=== PATIENT | female | born 1985 | race Caucasian/White ===

== ENCOUNTER 2018-01-14 21:06 | Emergency (ER) | payer OTHER ==
[~2018-01-14] VITALS: Ht 162.6 cm; Wt 116.5 kg
[2018-01-14 21:11] VITALS: BP 155/92; PULSE 85; TEMP 36.8; O2SAT 100; Ht 162.6 cm; Wt 116.5 kg
--- NOTE | 2018-01-14 21:33 | EMERGENCY ROOM VISIT NOTE ---
History Report prepared by Catarino: Stu Iyer Under the Supervision of: Dr. Db Jordan M.D. 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 The patient reported "sharp" pain when the bug bit her. Se did not see any bug present when she checked the leg. She denies shortness of breath, but notes that there is redness around the bite. Source of History: patient Onset: 1 hour POWER CHECKER Position: leg (left) Quality: sharp Timing: other (patient bit an hour ago) Associated Symptoms: No SOB Review of Systems See HPI for pertinent positives and negatives. A total of ten systems were reviewed and were otherwise negative. Past Medical & Surgical Hx of migraines. Family History Diabetes mellitus Heart disease Social History Smoking Status: Never Smoker Marital Status: single Housing Status: lives alone Occupation Status: employed Allergies Coded Allergies: No Known Allergies (Unverified , 01/14/18) Physical Exam Vital Signs Date Time Temp Pulse Resp B/P (MAP) Pulse Ox O2 Delivery O2 Flow Rate FiO2 01/14/18 21:11 36.8 85 18 155/92 100 Room Air Physical Exam Physical Exam GENERAL: He is oriented to person, place, and time. He appears well-developed and well-nourished. He does not appear distressed. HENT: Exam performed. Head: Normocephalic and atraumatic. Right Ear: External ear normal. No mastoid tenderness. Left Ear: External ear normal. No mastoid tenderness. Mouth/Throat: The oropharynx is clear and moist. No trismus in the jaw. No dental abscesses or uvula swelling. No oropharyngeal exudate or tonsillar abscesses. EYES: Conjunctivae and EOM are normal. Pupils are equal, round, and reactive to light. Right eye exhibits no discharge. Left eye exhibits no discharge. No scleral icterus. NECK: Normal range of motion. Neck supple. No JVD present. No spinous process tenderness present. No carotid bruit present. No rigidity. No tracheal deviation and normal range of motion present. No Brudzinski's sign and no Kernig 's sign noted. CV: Normal rate, regular rhythm, normal heart sounds and intact distal pulses. There is no peripheral edema. Palpable radial pulses bue. PULM/CHEST: Effort normal and breath sounds normal. No respiratory distress. No stridor. He has no wheezes. He has no rales. Chest Wall: He exhibits no tenderness. ABD: The abdomen is soft. Bowel sounds are normal. He has no distension. No mass is present. There is no tenderness. There is no rebound, no guarding, no Cottrell's sign and no tenderness at McBurney's point. Rovsig negative. MUSC/SKEL: Normal range of motion. There is no peripheral edema, tenderness or deformity. LYMPH: No cervical adenopathy. NEURO: He is alert and oriented to person, place, and time. He has normal strength. No cranial nerve deficit or sensory deficit. Coordination and gait normal. GCS eye subscore is 4. GCS verbal subscore is 5. GCS motor subscore is 6. Cerebellar tests wnl. SKIN: There is a small insect bite with minimal surrounding erythema to the left lateral thigh. NO target lesion, no vesicles, no fluctuation, no discharge , Nikolsky negative. PSYCH: He has a normal mood and affect. Behavior is normal. Judgment and thought content normal. Medical Decision & Procedures ED Course 2115: The patient was evaluated in room B5. A complete history and physical exam was performed. The patient drove herself to the emergency department. On exam there is no evidence of any acute dermatological emergency. There are no signs of anaphylactic reaction. No respiratory distress. Patient was advised to take Benadryl when she gets home. No Benadryl was given in the emergency department as she has to drive home herself. Follow-up with PCP. DISCHARGE - Plan of care discussed with patient and questions answered. The patient was given both verbal and printed discharge instructions. The patient verbalized understanding and ability to comply. The patient is to seek outpatient follow up as noted in the discharge instructions. The patient verbalized understanding and ability to comply. The patient is discharged in stable condition. The patient was instructed to return for worsening symptoms. Medical Decision The patient was evaluated in room B5. A complete history and physical exam was performed. The patient drove herself to the emergency department. On exam there is no evidence of any acute dermatological emergency. There are no signs of anaphylactic reaction. No respiratory distress. Patient was advised to take Benadryl when she gets home. No Benadryl was given in the emergency department as she has to drive home herself. Follow-up with PCP. DISCHARGE - Plan of care discussed with patient and questions answered. The patient was given both verbal and printed discharge instructions. The patient verbalized understanding and ability to comply. The patient is to seek outpatient follow up as noted in the discharge instructions. The patient verbalized understanding and ability to comply. The patient is discharged in stable condition. The patient was instructed to return for worsening symptoms. Medication Reconcilliation Current Medication List: was personally reviewed by me Blood Pressure Screening Patient's blood pressure: Elevated blood pressure Blood pressure disposition: Elevated BP felt to be situational Impression Primary Impression: Insect bites Scribe Attestation The scribe's documentation has been prepared under my direction and personally reviewed by me in its entirety. I confirm that the note above accurately reflects all work, treatment, procedures, and medical decision making performed by me. The chart was completed utilizing [employer] Speech voice recognition software. Grammatical errors, random word insertions, pronoun errors, and incomplete sentences are an occasional consequence of this system due to software limitations, ambient noise, and hardware issues. Any formal questions or concerns about the content, text, or information contained within the body of this dictation should be directly addressed to the physician for clarification. Departure Information Dispostion Home / Self-Care Referrals Stephan Manuel M.D. (PCP) Patient Instructions My [facility] Problem Qualifiers Primary Impression: Insect bites Encounter type: initial encounter Qualified Codes: W57.XXXA - Bitten or stung by nonvenomous insect and other nonvenomous arthropods, initial encounter
== END 2018-01-14 21:36 | disposition home or self-care (01) ==
LOC: C.EDB 21:07
DX: S70.362A Insect bite (nonvenomous), left thigh, initial encounter (principal); W57.XXXA Bitten or stung by nonvenomous insect and other nonvenomous arthropods, initial encounter; Z83.3 Family history of diabetes mellitus

== ENCOUNTER 2024-04-10 13:22 | Inpatient (IN) ==
[2024-04-10 14:52] LABS: Creatinine Urine Random 79.3 mg/dl; Protein Creatinine Ratio Urine 0.3 (0-0.2)
[2024-04-10 15:07] LABS: Hemoglobin 11.1 g/dl (12.0-16.0); Mean Corpuscular Hemoglobin 26.2 pg (25.0-34.0); Mean Corpuscular Hgb Conc 31.7 g/dL (32.0-36.0); Mean Corpuscular Volume 82.7 fL (80.0-100.0); Mean Platelet Volume 10.1 fL (9.4-12.4); Platelet Count 359 K/uL (130-400); RDW Standard Deviation 44.5 fL (36.4-46.3); Red Blood Count 4.23 M/uL (4.20-5.40); White Blood Count 12.87 K/ul (4.8-10.8)
[2024-04-10 15:25] LABS: Albumin Globulin Ratio 0.9 (0.9-2); Albumin Level 3.2 gm/dl (3.4-5.0); BUN Creatinine Ratio 25.5 (10-20); Bilirubin,Total 0.2 mg/dl (0.2-1.0); Calcium 8.9 mg/dl (8.6-10.3); Creatinine Clr Calc Pharmacy 182.9 ml/min; Globulin 3.5 gm/dl (2.5-4.0); Total Protein 6.7 gm/dl (6.0-8.3)
[2024-04-10] MEDS ORDERED: LIDOCAINE 1% LOCAL 20 ML VIAL INFIL PRN (15:56)
[2024-04-10] MEDS ORDERED: CALCIUM CARBONATE 500 MG CHEWABLE TAB PO PRN (15:56)
--- NOTE | 2024-04-10 17:05 | Labor Progress Brief Note ---
Date of Service April 10, 2024 Subjective 38yo at 37w0d with blood pressure elevation two days ago, and again today, along with a sensation of her "head feeling weird, like I didn't get enough sleep," though denies any MOSER per se, no vision changes, and edema similar to the last few weeks of trace pedal swelling that is better in the morning and worse in the evening. Came to L&D and was found to have consistent hypertension but not consistently severe BPs; urine pr/cr ratio 0.3, and serum labs reassuring. Diagnosis of mild preeclampsia met, and given 37wk, indication for delivery. also c/b morbid obesity and A2GDM. Incomplete anatomy scan noted despite multiple attempts at [facility]; monthly growth scans done d/t incomplete survey, and recent measurements include EFW 86% and AC 94%. GBS is neg. Assessment & Plan (1) Mild preeclampsia: Plan: IOL: patient and FOB agreeable. Du balloon placed without difficulty. Will start pitocin once balloon falls out / 3cm minimum reached. A2GDM: will give diabetic-friendly meal this evening given likely length of induction, and will thereafter start the insulin intrapartum management protocol. GBS: Neg. BP: Not severe and patient asymptomatic; will consider antihypertensive and/or magnesium PRN course of care. Admission and Anticipated Discharge Date Admission Date: April 10, 2024 Physical Exam Genitourinary: 2/50/-2/soft/ant Du balloon placed cervically in the usual manner, insufflated with 30cc sterile water. FHT Cat 1 [place] quiet. Results & Data Vital Signs (Past 12 Hours) Vital Signs Temp Pulse Resp BP 04/10/24 16:33 78 04/10/24 16:33 151/87 H 04/10/24 15:28 72 04/10/24 15:28 142/76 H 04/10/24 15:13 81 04/10/24 15:13 149/82 H 04/10/24 14:58 81 04/10/24 14:58 156/86 H 04/10/24 14:43 76 04/10/24 14:43 161/93 H 04/10/24 14:05 82 04/10/24 14:05 144/95 H 04/10/24 13:50 98.2 F 20 04/10/24 13:28 98.2 F 78 20 158/90 H 04/10/24 13:25 80 172/93 H Coding Level of Care Code None Diagnoses Mild preeclampsia O14.00
[2024-04-10] MEDS ORDERED: DEXTROSE 50% 50 ML SYRINGE IV PRN (17:06)
[2024-04-10] MEDS ORDERED: SODIUM CHLORIDE 0.9% 1,000 ML IV PRN (17:06)
[2024-04-10] MEDS: NIFEdipine 10 MG CAP PO STA (17:23)
[2024-04-10] MEDS: NIFEdipine 10 MG CAP ONE (17:24)
[2024-04-10] MEDS: ACETAMINOPHEN 325 MG TAB PO PRN (20:44)
[2024-04-10] MEDS: AZELASTINE HCL 0.1% SCH (20:44)
[2024-04-10] MEDS: LACTATED RINGER'S 1,000 ML IV PRN (20:56)
[2024-04-10] MEDS: DEXTROSE 5% 1,000 ML IV PRN (20:57)
[2024-04-10] MEDS ORDERED: AZELASTINE HCL 0.1% NASAL 200 SPRAYS/27,400 MCG BTL SCH (21:00)
[2024-04-10] MEDS: INSULIN REGULAR 250 UNITS in SODIUM CHLORIDE 0.9% 247.5 ML IV PRN (21:00)
[2024-04-10] MEDS: OXYTOCIN 30 UNITS/NSS 30 UNITS/500 ML BAG IV PRN (21:01)
[2024-04-10] MEDS: LORATADINE 10 MG TAB PO SCH (23:07)
[2024-04-11] MEDS ORDERED: ROPIVACAINE 0.5% PF 5 MG/ML 20 ML VIAL EPI PRN (02:23)
[2024-04-11] MEDS ORDERED: fentaNYL citrate PF 100 MCG/2 ML VIAL EPI PRN (02:23)
[2024-04-11] MEDS ORDERED: diphenhydrAMINE 50 MG/ML VIAL IV PRN (02:23)
[2024-04-11] MEDS ORDERED: LIDOCAINE 2% MPF LOCAL 5 ML VIAL EPI PRN (02:23)
[2024-04-11] MEDS ORDERED: NALOXONE HCL 0.4 MG/1 ML VIAL/CARP IV PRN (02:23)
[2024-04-11] MEDS ORDERED: ePHEDrine sulfate 50 MG/ML AMP IV PRN (02:23)
[2024-04-11] MEDS ORDERED: NALBUPHINE HCL INJ 10 MG/ML AMP IV PRN (02:23)
[2024-04-11] MEDS ORDERED: SODIUM CHLORIDE 0.9% PF INJ 10 ML VIAL EPI PRN (02:23)
[2024-04-11] MEDS ORDERED: BUPIVACAINE 0.25% PF 30 ML VIAL EPI PRN (02:23)
[2024-04-11] MEDS ORDERED: NALOXONE HCL 1 MG in SODIUM CHLORIDE 0.9% 1,000 ML IV PRN (02:23)
--- NOTE | 2024-04-11 02:23 | Anesthesiology Consultation ---
Date of Service April 11, 2024 Assessment & Plan ASA ASA3 Proposed Anesthesia Anesthesia Type: Labor Epidural Risk / Benefits Reviewed With: PT / POA / Parent / Guardian, Accepts Plan and Informed Consent Obtained History Height/Weight Height: 5 ft 4 in Weight: 124.738 kg Allergies Allergy/AdvReac Type Severity Reaction Status Date / Time No Known Allergies Allergy Verified 04/05/24 09:09 Medications Home Medications Medication Instructions Recorded Confirmed Last Taken azelastine 2 spray intranasal BID 02/05/23 04/10/24 04/10/24 08:30 PNV [id number] 1 tab PO DAILY 09/14/23 04/10/24 04/09/24 22:00 [ Gummies] loratadine [Claritin] 1 tab PO DAILY 09/14/23 04/10/24 04/09/24 23:00 montelukast [Singulair] 1 tab PO DAILY 09/14/23 04/10/24 04/10/24 08:30 acetone (urine) test (Ketone Urine #50 ea 12/14/23 04/05/24 Unknown Test strips) blood sugar diagnostic (OneTouch #150 ea 12/14/23 04/05/24 Unknown Verio test strips) blood-glucose meter (OneTouch #1 ea 12/14/23 04/05/24 Unknown Verio Reflect Meter) lancets 33 gauge (OneTouch Delica #150 ea 12/14/23 04/05/24 Unknown Plus Lancet) pen needle, diabetic 32 gauge x #100 ea 01/01/24 04/05/24 Unknown 5/32" (BD Ultra-Fine Ebony Pen Needle) breast pump #1 ea 02/12/24 04/05/24 Unknown ferrous sulfate 1 tab PO .QOD 02/23/24 04/10/24 04/09/24 15:00 docusate sodium 50 mg capsule 150 mg PO HS 04/10/24 04/10/24 04/09/24 22:30 insulin NPH isoph U-100 human 100 55 unit subcut QPM 04/10/24 04/10/24 04/09/24 22:30 unit/mL (3 mL) subcutaneous pen (Novolin N FlexPen) magnesium 250 mg tablet 250 mg PO BID 04/10/24 04/10/24 04/09/24 09:30 Active Medications Generic Name Dose Route Start Last Admin Trade Name Freq PRN Reason Stop Dose Admin Acetaminophen 650 mg 04/10/24 15:56 04/10/24 20:44 Acetaminophen 325 Mg Tab PO 05/10/24 15:55 650 mg Q6H PRN Administration Pain Azelastine HCl 2 sprays 04/10/24 21:00 04/10/24 20:44 *Patient Own Med*Azelastine Hcl 0.1% Nasal Cades NA 05/10/24 20:59 2 sprays BID NEW Administration Lactated Ringer's 1,000 mls @ 125 mls/hr 04/10/24 15:56 04/11/24 02:20 Lr IV 04/12/24 15:55 999 mls/hr .Q8H PRN Titration L&D Protocol Protocol Oxytocin 30 units in 500 mls @ 8 mls/hr 04/10/24 17:06 04/11/24 00:00 Pitocin 30 Units/Nss IV 04/12/24 17:05 0.48 units/hr .Q24H PRN 8 mls/hr Labor Induction/Augmentation Titration Protocol 0.48 UNITS/HR Dextrose 1,000 mls @ 100 mls/hr 04/10/24 17:06 04/11/24 02:00 D5w IV 05/10/24 17:05 75 mls/hr .Q10H PRN Infusion BSG 180 or below Protocol Insulin Human Regular 250 250 mls @ 1.5 mls/hr 04/10/24 17:06 04/11/24 02:00 units/ Sodium Chloride IV 05/10/24 17:05 1 units/hr .Q24H PRN 1 mls/hr BSG 80mg/dL or ABOVE Titration Protocol Per Protocol Loratadine 10 mg 04/10/24 21:00 04/10/24 23:07 Loratadine 10 Mg Tab PO 05/10/24 20:59 10 mg HS NEW Administration Past Medical History Medical History Seasonal allergies History of chicken pox Exercise / Class Metabolic Activity II 4-5 Yardwork/Stairs/Walk up hill Past Family History Family History Mother Breast cancer, Onset Age: 66 Father Allergic rhinitis Hypertension Grandmother (Maternal) Heart disease Grandfather (Maternal) Heart disease Grandfather (Paternal) Heart disease Denies family history of Ovarian cancer Colorectal cancer Past Surgical History Surgical History No history of previous surgery Past Anesthesia History No Hx of Anesthesia Complications and No Family Hx of Anesthesia Complications History of PONV No Hx of PONV and No Hx of Motion Sickness Social History Smoking Status: Never smoker Do You Dip or Chew Tobacco: No Hx Alcohol Use: No Hx Substance Use: No Review of Systems denies fever/cough/ colds/ chest pain/ SOB/ INGRID denies INGRID Physical Exam Vital Signs Last Vital Signs Temp 36.8 C 04/11/24 02:56 Pulse 81 04/11/24 03:03 Resp 18 04/10/24 23:00 BP 145/77 H 04/11/24 03:03 Pulse Ox 100 04/11/24 02:57 ENMT Mouth: no TMJ abnormality and no dentition abnormality Thyromental Distance: > or= 3.5 Finger Breadths Mallampati Class: II Neck neck extension not limited Respiratory normal respiratory effort; no respiratory distress Auscultation: lungs clear to auscultation bilaterally Cardiovascular Rate/Rhythm: regular rate and regular rhythm Neurologic moves all extremities Psychiatric Orientation: alert and oriented x 3 Testing Laboratory Results 04/10/24 13:58 04/10/24 13:58 Blood Type O Positive 04/10/24 14:03 Antibody Screen NEGATIVE 04/10/24 14:03 04/11/24 04/11/24 04/11/24 03:02 02:03 01:04 POC Glucose 110 H 117 H 125 H 04/11/24 04/10/24 04/10/24 00:00 23:02 22:02 POC Glucose 122 H 114 H 104 H 04/10/24 04/10/24 20:59 20:03 POC Glucose 97 114 H
[2024-04-11] MEDS: fentaNYL citrate PF 100 MCG/2 ML VIAL ONE (03:03)
[2024-04-11] MEDS: LIDOCAINE 2%/EPINEPHRINE 1:200,000 20 ML PF ONE (03:04)
[2024-04-11] MEDS: fentANYL 2 MCG/ML BUPIVacaine 0.125%-NSS 100ML BAG ONE (03:04)
[2024-04-11] MEDS: BUPIVACAINE 0.25% PF 30 ML VIAL ONE (03:04)
[2024-04-11] MEDS: ePHEDrine sulfate 50 MG/ML AMP ONE (03:12)
[2024-04-11] MEDS: SODIUM CHLORIDE 0.9% PF INJ 10 ML VIAL ONE (03:12)
[2024-04-11] MEDS: LIDOCAINE 2%/EPINEPHRINE 1:200,000 20 ML PF EPI STA (03:34)
[2024-04-11] MEDS: BUPIVACAINE 0.25% PF 30 ML VIAL EPI STA (03:34)
[2024-04-11] MEDS: SODIUM CHLORIDE 0.9% PF INJ 10 ML VIAL EPI STA (03:34)
[2024-04-11] MEDS: fentaNYL citrate PF 100 MCG/2 ML VIAL EPI STA (03:34)
--- NOTE | 2024-04-11 06:44 | Labor Progress Brief Note ---
Date of Service April 11, 2024 Subjective Comfortable with epidural. No MOSER, RUQ pain, vision changes. Assessment & Plan (1) Mild preeclampsia: (2) Gestational diabetes mellitus (GDM) affecting , antepartum: Plan Continue IOL, anticipate . BP has mostly been in normal range following 1x procardia 10mg immediate release last evening and then after epidural as well. Admission and Anticipated Discharge Date Admission Date: April 10, 2024 Physical Exam Skin: Evident hidradenitis suppurativa throughout mons/labia/thighs area. Open wound on most dependent area of pannus, c/w an open boil likely occurring some days ago that is granulating in from the base, total size of wound currently about 1x2cm with minimal surrounding erythema. Patient was not aware of this, cannot see the area well. Will cleanse and cover. Genitourinary: /-1 SROM for clear fluid was evident prior to exam FHT Cat 1 [place] Q3 Pit @ 14 at time of exam Results & Data Vital Signs (Past 12 Hours) Vital Signs Temp Pulse Resp BP Pulse Ox 04/11/24 06:37 81 93 04/11/24 06:35 81 93 04/11/24 06:31 75 160/89 H 04/11/24 06:27 81 94 04/11/24 06:17 81 94 04/11/24 06:16 80 174/100 H 04/11/24 06:15 78 94 04/11/24 06:09 88 94 04/11/24 06:07 84 95 04/11/24 06:02 97 H 94 04/11/24 06:00 108 H 141/82 H 04/11/24 05:57 96 04/11/24 05:57 107 H 04/11/24 05:57 103 H 94 04/11/24 05:51 95 H 94 04/11/24 05:47 100 H 95 04/11/24 05:46 99 H 138/78 04/11/24 05:45 84 94 04/11/24 05:38 84 94 04/11/24 05:37 87 94 04/11/24 05:31 90 94 04/11/24 05:30 96 H 130/81 04/11/24 05:27 93 H 94 04/11/24 05:25 88 94 04/11/24 05:18 89 94 04/11/24 05:17 89 95 04/11/24 05:16 98 H 132/86 04/11/24 05:12 98 H 94 04/11/24 05:11 94 H 130/87 04/11/24 05:07 86 94 04/11/24 05:04 91 H 94 04/11/24 04:59 92 H 94 04/11/24 04:57 104 H 97 04/11/24 04:49 81 94 04/11/24 04:47 94 04/11/24 04:47 95 H 04/11/24 04:47 86 123/68 04/11/24 04:43 82 94 04/11/24 04:38 94 H 94 04/11/24 04:37 91 H 95 04/11/24 04:31 92 H 123/74 04/11/24 04:27 84 94 04/11/24 04:23 91 H 94 04/11/24 04:17 92 H 94 04/11/24 04:15 84 119/70 94 04/11/24 04:10 95 H 94 04/11/24 04:07 81 95 04/11/24 04:05 85 94 04/11/24 03:59 97 H 124/71 04/11/24 03:57 91 H 96 04/11/24 03:55 92 H 120/65 04/11/24 03:50 39 L 107/69 04/11/24 03:47 76 95 04/11/24 03:46 97 H 94 04/11/24 03:43 100 H 119/74 04/11/24 03:38 77 114/74 04/11/24 03:37 85 95 04/11/24 03:36 90 94 04/11/24 03:33 92 H 113/73 04/11/24 03:31 95 H 94 04/11/24 03:28 100 H 112/66 04/11/24 03:27 92 H 97 04/11/24 03:25 76 106/61 04/11/24 03:22 75 93 04/11/24 03:18 91 H 121/62 04/11/24 03:17 94 H 96 04/11/24 03:15 99 H 94 04/11/24 03:13 100 H 139/72 04/11/24 03:08 116 H 144/77 H 04/11/24 03:07 92 H 96 04/11/24 03:03 81 145/77 H 04/11/24 03:00 86 158/88 H 04/11/24 02:57 105 H 100 04/11/24 02:56 98.2 F 04/11/24 02:53 85 193/92 H 04/11/24 02:47 84 100 04/11/24 02:43 82 157/91 H 04/11/24 02:37 89 91 04/11/24 02:30 82 146/87 H 04/11/24 02:00 93 H 143/86 H 04/11/24 01:30 93 H 147/68 H 04/11/24 01:02 76 139/62 04/11/24 00:47 81 154/77 H 04/11/24 00:35 77 168/93 H 04/11/24 00:29 72 175/94 H 04/10/24 23:58 86 04/10/24 23:58 128/79 04/10/24 23:29 81 04/10/24 23:29 136/85 04/10/24 23:00 18 04/10/24 23:00 98.2 F 18 04/10/24 22:58 87 04/10/24 22:58 132/76 04/10/24 22:28 77 04/10/24 22:28 135/79 04/10/24 21:59 86 04/10/24 21:59 163/81 H 04/10/24 21:39 86 04/10/24 21:39 136/90 04/10/24 21:28 83 04/10/24 21:28 180/90 H 04/10/24 20:58 91 H 04/10/24 20:58 141/76 H 04/10/24 20:34 90 04/10/24 20:34 142/78 H 04/10/24 19:59 85 04/10/24 19:59 164/83 H 04/10/24 19:29 90 04/10/24 19:29 149/88 H 04/10/24 19:07 18 04/10/24 19:07 98.2 F 18 04/10/24 19:07 88 04/10/24 19:07 140/87 Coding Level of Care Code None Diagnoses Mild preeclampsia O14.00 Gestational diabetes mellitus (GDM) affecting , antepartum O24.419
[2024-04-11] MEDS: NIFEdipine 10 MG CAP PO STA ×2 (07:15→15:05)
--- NOTE | 2024-04-11 09:17 | Labor Progress Brief Note ---
Date of Service April 11, 2024 Subjective comfortable Assessment & Plan (1) Mild preeclampsia: (2) Insulin controlled gestational diabetes mellitus (GDM) during : Plan now has internals, will set pit max at 30. fetus category one. Contractions do not appear adequate at this point. Admission and Anticipated Discharge Date Admission Date: April 10, 2024 Physical Exam Physical Exam: cx--5.5/75/-2 toco--q2-3, pit at 18, iupc placed efm--140s with mod variability, accels to 160s, no decels, fse placed Results & Data Vital Signs (Past 12 Hours) Vital Signs Temp Pulse Resp BP Pulse Ox 04/11/24 09:07 93 H 99 04/11/24 09:00 82 157/81 H 04/11/24 08:57 84 100 04/11/24 08:47 88 100 04/11/24 08:46 80 160/83 H 04/11/24 08:37 82 99 04/11/24 08:30 85 157/91 H 04/11/24 08:27 86 100 04/11/24 08:17 99 H 100 04/11/24 08:16 85 167/93 H 04/11/24 08:07 99 H 98 04/11/24 08:01 83 167/90 H 04/11/24 07:57 99 H 99 04/11/24 07:47 84 98 04/11/24 07:45 75 147/82 H 04/11/24 07:37 91 H 98 04/11/24 07:30 85 155/91 H 04/11/24 07:27 86 98 04/11/24 07:17 91 H 96 04/11/24 07:14 86 149/88 H 04/11/24 07:07 86 96 04/11/24 07:00 36.7 C 85 20 161/95 H 04/11/24 06:57 87 95 04/11/24 06:56 78 94 04/11/24 06:47 76 93 04/11/24 06:45 80 160/89 H 04/11/24 06:37 81 93 04/11/24 06:35 81 93 04/11/24 06:31 75 160/89 H 04/11/24 06:27 81 94 04/11/24 06:17 81 94 04/11/24 06:16 80 174/100 H 04/11/24 06:15 78 94 04/11/24 06:09 88 94 04/11/24 06:07 84 95 04/11/24 06:02 97 H 94 04/11/24 06:00 108 H 141/82 H 04/11/24 05:57 96 04/11/24 05:57 107 H 04/11/24 05:57 103 H 94 04/11/24 05:51 95 H 94 04/11/24 05:47 100 H 95 04/11/24 05:46 99 H 138/78 04/11/24 05:45 84 94 04/11/24 05:38 84 94 04/11/24 05:37 87 94 04/11/24 05:31 90 94 04/11/24 05:30 96 H 130/81 04/11/24 05:27 93 H 94 04/11/24 05:25 88 94 04/11/24 05:18 89 94 04/11/24 05:17 89 95 04/11/24 05:16 98 H 132/86 04/11/24 05:12 98 H 94 04/11/24 05:11 94 H 130/87 04/11/24 05:07 86 94 04/11/24 05:04 91 H 94 04/11/24 04:59 92 H 94 04/11/24 04:57 104 H 97 04/11/24 04:49 81 94 04/11/24 04:47 94 04/11/24 04:47 95 H 04/11/24 04:47 86 123/68 04/11/24 04:43 82 94 04/11/24 04:38 94 H 94 04/11/24 04:37 91 H 95 04/11/24 04:31 92 H 123/74 04/11/24 04:27 84 94 04/11/24 04:23 91 H 94 04/11/24 04:17 92 H 94 04/11/24 04:15 84 119/70 94 04/11/24 04:10 95 H 94 04/11/24 04:07 81 95 04/11/24 04:05 85 94 04/11/24 03:59 97 H 124/71 04/11/24 03:57 91 H 96 04/11/24 03:55 92 H 120/65 04/11/24 03:50 39 L 107/69 04/11/24 03:47 76 95 04/11/24 03:46 97 H 94 04/11/24 03:43 100 H 119/74 04/11/24 03:38 77 114/74 04/11/24 03:37 85 95 04/11/24 03:36 90 94 04/11/24 03:33 92 H 113/73 04/11/24 03:31 95 H 94 04/11/24 03:28 100 H 112/66 04/11/24 03:27 92 H 97 04/11/24 03:25 76 106/61 04/11/24 03:22 75 93 04/11/24 03:18 91 H 121/62 04/11/24 03:17 94 H 96 04/11/24 03:15 99 H 94 04/11/24 03:13 100 H 139/72 04/11/24 03:08 116 H 144/77 H 04/11/24 03:07 92 H 96 04/11/24 03:03 81 145/77 H 04/11/24 03:00 86 158/88 H 04/11/24 02:57 105 H 100 04/11/24 02:56 36.8 C 04/11/24 02:53 85 193/92 H 04/11/24 02:47 84 100 04/11/24 02:43 82 157/91 H 04/11/24 02:37 89 91 04/11/24 02:30 82 146/87 H 04/11/24 02:00 93 H 143/86 H 04/11/24 01:30 93 H 147/68 H 04/11/24 01:02 76 139/62 04/11/24 00:47 81 154/77 H 04/11/24 00:35 77 168/93 H 04/11/24 00:29 72 175/94 H 04/10/24 23:58 86 04/10/24 23:58 128/79 04/10/24 23:29 81 04/10/24 23:29 136/85 04/10/24 23:00 18 04/10/24 23:00 36.8 C 18 04/10/24 22:58 87 04/10/24 22:58 132/76 10/20/24 22:28 77 04/10/24 22:28 135/79 04/10/24 21:59 86 04/10/24 21:59 163/81 H 04/10/24 21:39 86 04/10/24 21:39 136/90 04/10/24 21:28 83 04/10/24 21:28 180/90 H Coding Level of Care Code None Diagnoses Mild preeclampsia O14.00 Insulin controlled gestational diabetes mellitus (GDM) during O24.414
[2024-04-11] MEDS: fentANYL 2 MCG/ML BUPIVacaine 0.125%-NSS 100ML BAG EPI PRN (10:12)
[2024-04-11] MEDS: ONDANSETRON INJ 2 MG/ML 2 ML VIAL IV PRN (13:21)
[2024-04-11] MEDS: NIFEdipine 10 MG CAP ONE (14:21)
--- NOTE | 2024-04-11 14:27 | Labor Progress Brief Note ---
Date of Service April 11, 2024 Subjective notes increased pain despite [employer] epidural. Assessment & Plan (1) Mild preeclampsia: (2) Insulin controlled gestational diabetes mellitus (GDM) during : Plan Patient has had borderline severe blood pressures all am. Some are higher because of poor cuff placement. She continues to be asx. Once was told complete and needed to start pushing, she became VERY anxious and tearful and her pressures immediately became much higher. Suspect that alot of this is due to her anxiety but will go ahead and treat wtih another dose of po nifedipine. We really just need to get the baby out and I suspect her pressures will improve. Anticipate vaginal delivery Admission and Anticipated Discharge Date Admission Date: April 10, 2024 Physical Exam Physical Exam: cx--c/c/+3 toco--q2min efm--130s wtih mod variability, accels preset, occasional variable. Results & Data Vital Signs (Past 12 Hours) Vital Signs Temp Pulse Resp BP Pulse Ox 04/11/24 14:17 89 100 04/11/24 14:16 96 H 209/107 H 04/11/24 14:10 83 202/92 H 04/11/24 14:08 85 215/88 H 04/11/24 14:07 86 99 04/11/24 14:01 94 H 210/101 H 04/11/24 13:59 96 H 199/105 H 04/11/24 13:57 113 H 98 04/11/24 13:47 108 H 98 04/11/24 13:46 104 H 198/104 H 04/11/24 13:37 90 100 04/11/24 13:31 85 141/65 H 04/11/24 13:27 78 99 04/11/24 13:22 102 H 166/78 H 04/11/24 13:17 132 H 98 04/11/24 13:16 89 156/84 H 04/11/24 13:07 98 H 100 04/11/24 13:04 89 145/64 H 04/11/24 13:01 78 195/84 H 04/11/24 12:57 91 H 99 04/11/24 12:47 89 99 04/11/24 12:46 90 176/85 H 04/11/24 12:37 85 98 04/11/24 12:31 82 173/91 H 04/11/24 12:27 85 99 04/11/24 12:17 75 176/94 H 99 04/11/24 12:07 86 100 04/11/24 12:01 88 170/94 H 04/11/24 11:57 77 99 04/11/24 11:47 78 99 04/11/24 11:46 77 179/95 H 04/11/24 11:37 78 100 04/11/24 11:34 87 93 04/11/24 11:31 78 136/68 04/11/24 11:27 76 99 04/11/24 11:17 74 100 04/11/24 11:15 78 136/73 04/11/24 11:07 83 99 04/11/24 11:00 91 H 141/77 H 04/11/24 10:57 83 100 04/11/24 10:47 74 100 04/11/24 10:46 76 143/71 H 04/11/24 10:37 76 100 04/11/24 10:30 78 142/68 H 04/11/24 10:27 76 100 04/11/24 10:17 97 H 100 04/11/24 10:15 81 144/83 H 04/11/24 10:07 81 98 04/11/24 10:00 80 144/83 H 04/11/24 09:57 77 96 04/11/24 09:56 78 94 04/11/24 09:49 79 94 04/11/24 09:47 78 96 04/11/24 09:45 89 146/86 H 04/11/24 09:37 83 100 04/11/24 09:30 85 146/81 H 04/11/24 09:27 82 97 04/11/24 09:17 91 H 99 04/11/24 09:15 92 H 163/82 H 04/11/24 09:07 93 H 99 04/11/24 09:00 36.8 C 82 20 157/81 H 04/11/24 08:57 84 100 04/11/24 08:47 88 100 04/11/24 08:46 80 160/83 H 04/11/24 08:37 82 99 04/11/24 08:30 85 157/91 H 04/11/24 08:27 86 100 04/11/24 08:17 99 H 100 04/11/24 08:16 85 167/93 H 04/11/24 08:07 99 H 98 04/11/24 08:01 83 167/90 H 04/11/24 07:57 99 H 99 04/11/24 07:47 84 98 04/11/24 07:45 75 147/82 H 04/11/24 07:37 91 H 98 04/11/24 07:30 85 155/91 H 04/11/24 07:27 86 98 04/11/24 07:17 91 H 96 04/11/24 07:14 86 149/88 H 04/11/24 07:07 86 96 04/11/24 07:00 36.7 C 85 20 161/95 H 04/11/24 06:57 87 95 04/11/24 06:56 78 94 04/11/24 06:47 76 93 04/11/24 06:45 80 160/89 H 04/11/24 06:37 81 93 04/11/24 06:35 81 93 04/11/24 06:31 75 160/89 H 04/11/24 06:27 81 94 04/11/24 06:17 81 94 04/11/24 06:16 80 174/100 H 04/11/24 06:15 78 94 04/11/24 06:09 88 94 04/11/24 06:07 84 95 04/11/24 06:02 97 H 94 04/11/24 06:00 108 H 141/82 H 04/11/24 05:57 96 04/11/24 05:57 107 H 04/11/24 05:57 103 H 94 04/11/24 05:51 95 H 94 04/11/24 05:47 100 H 95 04/11/24 05:46 99 H 138/78 04/11/24 05:45 84 94 04/11/24 05:38 84 94 04/11/24 05:37 87 94 04/11/24 05:31 90 94 04/11/24 05:30 96 H 130/81 04/11/24 05:27 93 H 94 04/11/24 05:25 88 94 04/11/24 05:18 89 94 04/11/24 05:17 89 95 04/11/24 05:16 98 H 132/86 04/11/24 05:12 98 H 94 04/11/24 05:11 94 H 130/87 04/11/24 05:07 86 94 04/11/24 05:04 91 H 94 04/11/24 04:59 92 H 94 04/11/24 04:57 104 H 97 04/11/24 04:49 81 94 04/11/24 04:47 94 04/11/24 04:47 95 H 04/11/24 04:47 86 123/68 04/11/24 04:43 82 94 04/11/24 04:38 94 H 94 04/11/24 04:37 91 H 95 04/11/24 04:31 92 H 123/74 04/11/24 04:27 84 94 04/11/24 04:23 91 H 94 04/11/24 04:17 92 H 94 04/11/24 04:15 84 119/70 94 04/11/24 04:10 95 H 94 04/11/24 04:07 81 95 04/11/24 04:05 85 94 04/11/24 03:59 97 H 124/71 04/11/24 03:57 91 H 96 04/11/24 03:55 92 H 120/65 04/11/24 03:50 39 L 107/69 04/11/24 03:47 76 95 04/11/24 03:46 97 H 94 04/11/24 03:43 100 H 119/74 04/11/24 03:38 77 114/74 04/11/24 03:37 85 95 04/11/24 03:36 90 94 04/11/24 03:33 92 H 113/73 04/11/24 03:31 95 H 94 04/11/24 03:28 100 H 112/66 04/11/24 03:27 92 H 97 04/11/24 03:25 76 106/61 04/11/24 03:22 75 93 04/11/24 03:18 91 H 121/62 04/11/24 03:17 94 H 96 04/11/24 03:15 99 H 94 04/11/24 03:13 100 H 139/72 04/11/24 03:08 116 H 144/77 H 04/11/24 03:07 92 H 96 04/11/24 03:03 81 145/77 H 04/11/24 03:00 86 158/88 H 04/11/24 02:57 105 H 100 04/11/24 02:56 36.8 C 04/11/24 02:53 85 193/92 H 04/11/24 02:47 84 100 04/11/24 02:43 82 157/91 H 04/11/24 02:37 89 91 04/11/24 02:30 82 146/87 H Coding Level of Care Code None Diagnoses Mild preeclampsia O14.00 Insulin controlled gestational diabetes mellitus (GDM) during O24.414
[2024-04-11] MEDS ORDERED: INSULIN REGULAR 250 UNITS in SODIUM CHLORIDE 0.9% 247.5 ML IV PRN (14:28)
[2024-04-11] MEDS: CARBOPROST TROMETHAMINE 250 MCG/ML AMPUL ONE (14:50)
--- NOTE | 2024-04-11 15:08 | Delivery Summary ---
Vaginal Delivery Summary Date of Service April 11, 2024 Vaginal Delivery Summary and 2nd Degree LAC Pre-operative Diagnosis: at 37 weeks pet without severe sx a2 gdm Post-operative Diagnosis: same Procedure: morales bulb pitocin epidural arom iupc/fse second degree laceration and repair QBL: 676cc Anesthesia: epidural Procedure: The patient presented to labor and delivery because of concern for elevated blood pressures. She qualified for the diagnosis of pet without severe sx. She got a morales bulb and then pitocin. Her blood pressures were intermittently treated with procardia. She continued to remain asymptomatic. She then got an epidural and arom. Eventually she got an iupc and fse to better monitor the labor. She then did progress to c/c/+3. The patient pushed for less than 10min to deliver a viable female infant in sintia position. The nose and mouth were bulb suctioned on the perineum and the rest of the was then delivered without difficulty. The baby was vigorous. The nose and mouth were again bulb suctioned and the infant was placed in the maternal abdomen for drying and attention after clamping and cutting the cord as the cord was short. Cord blood and segment obtained. Placenta delivered spontaneous, intact with a three vessel cord. Cervix/sulci/rectum were intact. A second degree perineal laceration was repaired in the normal standard fashion. Hemostasis obtained with dilute pitocin and fundal massage. Apgars were pending. Mother and baby doing well at the end of the delivery. Unfortunately the patient's pressures were elevated during the last couple of hours of the labor. She was given a dose of procardia just before delivery. Will need to monitor her blood pressures slowly. If they continue to be >160/105, will need to treat with Mag. [facility] Vaginal Delivery Charge Delivery Type Details: and 2nd Degree LAC
[2024-04-11] MEDS: OXYTOCIN 30 UNITS/NSS 30 UNITS/500 ML BAG IV PRN (15:23)
[2024-04-11] MEDS ORDERED: HYDROCORTISONE ACETATE 25 MG SUPP PR PRN (15:34)
[2024-04-11] MEDS ORDERED: bisacodyL 10 MG SUPP PR PRN (15:34)
[2024-04-11] MEDS ORDERED: oxyCODONE/ACETAMINOPHEN 5mg/325mg TAB PO PRN (15:34)
[2024-04-11] MEDS ORDERED: ACETAMINOPHEN 325 MG TAB PO PRN (15:34)
[2024-04-11] MEDS: CARBOPROST TROMETHAMINE 250 MCG/ML AMPUL IM ONE (15:53)
[2024-04-11] MEDS: DIPHTHER/TETAN/PERTUS Vaccine (Tdap, Adol/Adult) 0.5mL IM ONE (15:53)
[2024-04-11] MEDS: miSOPROStoL 200 MCG TAB ONE (15:53)
--- NOTE | 2024-04-11 16:16 | Anesthesia Procedure Note ---
Date of Service April 11, 2024 Anesthesia Post Epidural Note Vital Signs Vital Signs: Temp Pulse Resp BP Pulse Ox 36.8 C 75 20 145/68 H 100 04/11/24 09:00 04/11/24 16:00 04/11/24 15:45 04/11/24 16:00 04/11/24 14:47 Notes Mental Status: alert / awake / arousable and participated in evaluation Nausea / Vomiting: adequately controlled Pain: adequately controlled Airway Patency, RR, SpO2: stable & adequate BP & HR: stable & adequate Hydration State: stable & adequate Neuraxial Anesthesia: was administered and sensory block is resolving Anesthetic Complications: no major complications apparent and Pt Satisfied with anesthetic care Epidural: Removed without complications and With tip intact
[2024-04-11] MEDS: LABETALOL HCL 100 MG TAB PO STA (18:32)
[2024-04-11] MEDS: BENZOCAINE 20% SPRY 85 APPLN/85 GM CAN EXT PRN (20:14)
[2024-04-11] MEDS: LORATADINE 10 MG TAB PO ONE (20:50)
[2024-04-11] MEDS: DOCUSATE SODIUM 100 MG CAP PO SCH (20:50)
[2024-04-11] MEDS: IBUPROFEN 600 MG TAB PO PRN (22:17)
[2024-04-11] MEDS: AZELASTINE HCL 0.1% NASAL 200 SPRAYS/27,400 MCG BTL SCH (22:18)
[2024-04-12 04:44] VITALS: RESP 18
--- NOTE | 2024-04-12 05:44 | Obstetrical Progress Note ---
Date of Service <Chema WhitneyDO griffin - Last Filed: 04/12/24 06:49> April 12, 2024 Assessment & Plan <Chema WhitneyDO griffin - Last Filed: 04/12/24 06:49> (1) state: Patient is a 38yo pp day 1 s/p complicated by peripartum HTN and 2nd degree perineal lac during delivery. Feels well today, VSS this morning Encourage ambulation and as tolerated Pain control w/ ibuprofen, percocet as needed Hb.1 yesterday (04/12/24) Home: today or tomorrow Follow up with Dr. Sharma in 6wks (2) Perineal laceration during delivery: repaired in usual standard fashion monitor for signs of infection Perineal laceration degree: second degree Qualified Code(s): O70.1 - Second degree perineal laceration during delivery <Marissa Sharma MD, FACOG - Last Filed: 04/12/24 07:20> (1) state: (2) Perineal laceration during delivery: Subjective <Chema PedersonAgustina HerminiaDO griffin - Last Filed: 04/12/24 06:49> Patient is a 38yo pp day 1 s/p complicated by peripartum HTN and 2nd degree perineal lac during delivery. VSS this morning. Ambulating: yes Voiding: urinated and BM Passing gas: yes Diet tolerance: yes, ob regular Lochia: decreasing Feeding type: breast Current pain: minimal Feeling well this morning, resting comfortably in NAD. Denies fever, body aches, chills, headache, vision changes, chest pain, SOB, LE pain/swelling, or LE numbness/tingling. Review of Systems as above Physical Exam <Chema PedersonAgustina HerminiaDO griffin - Last Filed: 04/12/24 06:49> General: A&Ox4, resting comfortably in NAD, nontoxic in appearance Skin: warm, dry, intact HEENT: NC/AT, anicteric sclerae, conjunctive w/o injection, moist mucous membranes Heart: +s1/s2, RRR, no murmurs, rubs, or gallops Lungs: equal air entry b/l, clear to auscultation, no wheeze, rales, or rhonchi Abd: +BS, no TTP, uterine fundus firm at level of umbilicus Ext: no significant erythema/swelling, no tenderness to palpation, negative Ann's, no clubbing/cyanosis Neuro: speech intact, no facial droop, moves all extremities Results & Data <Chema Hope DO - Last Filed: 04/12/24 06:49> Vital Signs (Past 12 Hours) Vital Signs Temp Pulse Pulse Resp BP BP Pulse Ox 04/12/24 04:20 36.7 C 81 18 115/68 97 04/11/24 23:35 36.8 C 71 16 111/59 L 97 04/11/24 20:00 36.7 C 81 18 131/82 96 04/11/24 19:30 147/85 H 04/11/24 18:22 74 188/82 H 04/11/24 17:52 72 178/81 H O2 Del Method 04/12/24 04:20 Room Air 04/11/24 23:35 Room Air 04/11/24 20:00 Room Air 04/11/24 19:30 04/11/24 18:22 04/11/24 17:52 Medications Administered Azelastine HCl (Azelastine Hcl 0.1% Nasal 200 Sprays/27,400 Mcg Btl) 1 sprays NA BID [facility] Stop: 05/11/24 17:29 Last Admin: 04/11/24 22:18 Dose: 1 sprays Documented By: REMY Benzocaine (Benzocaine 20% Shaniko 85 Appln/85 Gm Can) 1 appln EXT PRN PRN PRN Reason: Perineal Discomfort Stop: 05/11/24 15:33 Last Admin: 04/11/24 20:14 Dose: 1 appln Documented By: REMY Docusate Sodium (Docusate Sodium 100 Mg Cap) 100 mg PO DAILY@ [facility] Stop: 05/11/24 20:59 Last Admin: 04/11/24 20:50 Dose: 100 mg Documented By: REMY Ibuprofen (Ibuprofen 600 Mg Tab) 600 mg PO Q4H PRN PRN Reason: Pain/MOSER/Cramping/Fever Stop: 05/11/24 15:33 Last Admin: 04/11/24 22:17 Dose: 600 mg Documented By: REMY Supervising Physician <Marissa Sharma MD, FACOG - Last Filed: 04/12/24 07:20> Co-Signing Physician Notes Resident Physician Supervision Note: I interviewed and examined the patient. Discussed with Dr. Hope and agree with findings and plan as documented in the note. Any exceptions or clarifications are listed here: Doing well, ppd1. Pressure this am wnl and have trended down overnight. Will hold on procardia this am and see what her pressures do in the am. IN the meantime, routine care. Documented By: Marissa Sharma MD, FACOG Resident Activity Tracking <Chema Hope, - Last Filed: 04/12/24 06:49> Resident Involvement: Resident Care Provided Care Provided: OB Delivery
[2024-04-12 07:05] LABS: Hematocrit (blood only) 27.6 % (37.0-47.0); Hemoglobin 8.9 g/dl (12.0-16.0)
[2024-04-12] MEDS: PRENATAL VITAMIN 1 TAB PO SCH (07:58)
[2024-04-12] MEDS: NIFEdipine EXTENDED REL 30 MG TABCR PO SCH (08:08)
[2024-04-12] MEDS ORDERED: BACITRACIN OINT 0.9 GM PKT EXT SCH (09:00)
[2024-04-12] MEDS ORDERED: Nursing to Pharmacy Communication SCH (09:15)
[2024-04-12] MEDS: MONTELUKAST SODIUM 10 MG TABLET PO SCH (10:31)
[2024-04-12] MEDS: BACITRACIN OINT 14 GM TUBE EXT SCH (10:32)
[2024-04-12] MEDS: bisacodyL 5 MG TABEC PO SCH (20:19)
[2024-04-12] MEDS ORDERED: MONTELUKAST SODIUM 10 MG TABLET PO SCH (21:00)
[2024-04-12] MEDS: AZELASTINE HCL 0.1% NASAL 200 SPRAYS/27,400 MCG BTL SCH (23:40)
[2024-04-13 00:25] VITALS: O2SAT 97
--- NOTE | 2024-04-13 05:58 | Obstetrical Progress Note ---
Date of Service <Chema PedersonAgustina Hope DO - Last Filed: 04/13/24 07:06> April 13, 2024 Assessment & Plan <Chema PedersonAgustina Hope DO - Last Filed: 04/13/24 07:06> (1) state: Patient is a 38yo pp day 2 s/p complicated by peripartum HTN and 2nd degree perineal lac during delivery. Feels well today, VSS this morning Encourage ambulation and as tolerated Pain control as needed Hb.1 -> 8.9 as of yesterday Home: today or tomorrow pending baby doing well per peds Follow up with Dr. Sharma in 6wks (2) Perineal laceration during delivery: repaired in usual standard fashion monitor for signs of infection Perineal laceration degree: second degree Qualified Code(s): O70.1 - Second degree perineal laceration during delivery <Andie Bradley MD, FACOG - Last Filed: 04/13/24 09:50> (1) state: (2) Perineal laceration during delivery: Subjective <Chema PedersonAgustina Hope DO - Last Filed: 04/13/24 07:06> Patient is a 38yo pp day 2 s/p complicated by peripartum HTN and 2nd degree perineal lac during delivery. Ambulation: yes Voiding: urinating, BM Passing gas: yes Diet tolerance: yes, OB reg Lochia: decreasing Feeding type: breast, bottle if necessary Current pain: minimal Resting comfortably this AM in NAD. Denies fever, chills, headache, vision changes, chest pain, SOB, abdominal pain, LE pain/swelling, or LE numbness/tingling. Physical Exam <Chema Renadlo Hope DO - Last Filed: 04/13/24 07:06> General: A&Ox4, resting comfortably in NAD, nontoxic in appearance Skin: warm, dry, intact HEENT: NC/AT, anicteric sclerae, conjunctive w/o injection, moist mucous membranes Heart: +s1/s2, RRR, no murmurs, rubs, or gallops Lungs: equal air entry b/l, clear to auscultation, no wheeze, rales, or rhonchi Abd: +BS, no TTP, unable to palpate uterine fundus due to obesity Ext: no significant erythema/swelling, no tenderness to palpation, negative Ann's, no clubbing/cyanosis Neuro: speech intact, no facial droop, moves all extremities Results & Data <Chema Hope DO - Last Filed: 04/13/24 07:06> Vital Signs (Past 12 Hours) Vital Signs Temp Pulse Resp BP Pulse Ox O2 Del Method 04/13/24 00:00 36.8 C 89 18 124/78 97 Room Air 04/12/24 20:00 36.9 C 85 18 132/84 99 Room Air Supervising Physician <Andie Bradley MD, FACOG - Last Filed: 04/13/24 09:50> Co-Signing Physician Notes Resident Physician Supervision Note: I interviewed and examined the patient. Discussed with Dr. Hope and agree with findings and plan as documented in the note. Any exceptions or clarifications are listed here: [None] Documented By: Andie Bradley MD, FACOG Resident Activity Tracking <Chema Hope DO - Last Filed: 04/13/24 07:06> Resident Involvement: Resident Care Provided Care Provided: OB Delivery
[2024-04-13 08:48] VITALS: BP 136/81; PULSE 85; TEMP 97.7
[2024-04-13] MEDS ORDERED: BACITRACIN OINT 14 GM TUBE EXT SCH (09:00)
== END 2024-04-13 15:30 | disposition home or self-care (01) | DRG 807 ==
LOC: OPB 13:22 → 4S1 13:23 → 4E2 04-11 19:44